=== PATIENT | male | born 1975 | race Caucasian/White ===

== ENCOUNTER 2021-10-22 15:11 | Emergency (ER) | payer BC, SELFPAY ==
[2021-10-22 15:30] VITALS: BP 156/99; PULSE 68; RESP 18; TEMP 37; O2SAT 96; BMI 32.8
[2021-10-22 15:53] VITALS: BP 156/99; PULSE 68; RESP 18; TEMP 37; O2SAT 96
--- NOTE | 2021-10-22 15:54 | HMH.EDUTC ---
[facility] [place] Clinical Impression: Fever blister Disposition: Home, Self-Care Condition on Discharge: Good Instructions: Cold Sores, DI for Cold Sores, Valacyclovir Additional Instructions: Take medication as instructed 2000mg every 12 hours for 1 days Sun exposure may sometimes trigger outbreaks of fever blisters. If you have recurring blisters, using sunscreen may help reduce their frequency. Fever blisters are contagious. Avoid kissing, sharing eating utensils, cups, water bottles, or other items if you are experiencing symptoms. Follow up with your Family Doctor if no improvement or any worsening of symptoms Return if needed Straight to ER if any life threatening symptoms Prescriptions: Valacyclovir HCl [Valacyclovir] 2,000 mg PO Q12H 1 Days #4 tab Transmission Status: Pending to [id number] Referrals: Isai Su [Primary Care Provider] - As needed Forms: Work/School Release Time of Disposition: 15:58 Medical Decision Making - Kwadwo Inquiry Pt receiving controlled substance: No Kwadwo was queried for this patient: No Vital Signs: 10/22/21 15:30 10/22/21 15:53 Temperature 98.6 F 98.6 F Temperature Source Oral Pulse Rate 68 Pulse Rate [Left Brachial] 68 Respiratory Rate 18 18 Blood Pressure 156/99 H Blood Pressure [Left Arm] 156/99 H Blood Pressure Mean [Left Arm] 118 Blood Pressure Source [Left Arm] Automatic Cuff Blood Pressure Position [Left Arm] Sitting 02 Sat by Pulse Oximetry 96 Oxygen Delivery Method Room Air [facility] [place] - General Stated complaint: canker sores on lips Time Seen by Provider: 10/22/21 15:45 Mode of Arrival: Ambulatory Source of Information: Patient Limitations: No Limitations Description of Symptoms (Recalled from Triage Doc. by RN): PATIENT C/O COLD SORES WITH SWELLING TO UPPER LIP X 2 DAYS HEENT Symptoms (Recalled from RN notes): Yes Resp Symptoms (Recalled from RN notes): No Skin Symptoms (Recalled from RN notes): No MS Symptoms (Recalled from RN notes): No Functional Status (Recalled from RN notes): WNL - History of Present Illness Provider Complaint: Patient states that he was under alot of stress last week and he noticed a couple days ago he had fever blisters starting on both sides of his upper lip States that he has been using Abreeva and since then they have spread accross his upper lip and he has had some swelling States that earlier his lip was swollen and puffy and has went down some not but still hurts - Related Data Previous Rx's Medication Instructions Recorded Valacyclovir HCl [Valacyclovir] 2,000 mg PO Q12H 1 Days #4 tab 10/22/21 Allergies Allergy/AdvReac Type Severity Reaction Status Date / Time Penicillins Allergy Verified 10/22/21 15:52 Sulfa (Sulfonamide Allergy Verified 10/22/21 15:52 Antibiotics) - Worker's Comp Is this a Worker's Comp case?: No [facility] History - Hepatitis A Screen Attestation statement:: This patient has been screened for Hepatitis A risk factors. I have reviewed the patient's past medical history: Yes Medical History: Reports:: Diabetes Mellitus Type 2 - Social History Alcohol Intake: never Occupational Status: other ROS Obtained: Yes All systems reviewed & no additional complaints, Yes Systems reviewed as appropriate & no additional complaints - Eyes Eyes: Reports system reviewed and no additional complaints, except as docu - ENT Ears, Nose, Mouth, and Throat: Reports system reviewed and no additional complaints, except as docu, Reports other (fever blisters and swelling on upper lip) Physical Exam - General General appearance: alert, in no apparent distress - Expanded ENT Exam Mouth exam: Present: other (fever blister like lesions noted on top lip in both corners of mouth with mild swelling) - Respiratory Respiratory exam: Present: normal lung sounds bilaterally. Absent: respiratory distress - Cardiovascular Cardiovascular exam: Present: regular rate, normal
== END 2021-10-22 16:03 | disposition home or self-care (01) ==
PROVIDERS: Emergency Provider Nurse Practitioner; PCP Family Medicine
DX: B00.1 Herpesviral vesicular dermatitis (principal)
CPT/HCPCS: 99212; G0463

== ENCOUNTER 2024-12-10 20:51 | Emergency (ER) | payer OTHER, SELFPAY ==
--- OUTSIDE RECORDS SUMMARY | 2024-10-26 10:45 | XMS_ITS | Encounter Summary ---
Author Organization [facility] Address [address] [place] [address] Care Team Providers Care Type Soldering Machine Tender Name Role Phone Isai Su MD Primary Care Provider [phone] Reason for Visit * Reason Comments F/u HTN Encounter Details Date Type Department Care Team (Late st Contact Info) Description 10/26/2024 10:45 AM EDT Office Visit [facility] [address] [place] [address] Isai Su MD [address] [place] [address] Essential hypertension (Primary Dx); Type 2 diabetes mellitus with hyperglycemia, without long-term current use of insulin; Hypogonadism in male; LLQ abdominal pain; History of kidney stones Social History Tobacco Use Types Packs/Day Years Used Date Smoking Tobacco: Never Smokeless Tobacco: Never Alcohol Use Standard Drinks/Week Comments Yes 0 (1 standard drink = 0.6 oz pur e alcohol) PHQ-2 Answer Date Recorded Retired PHQ-9: Brief Depression Severity Measure Score 0 06/15/2021 Abuse Screen Answer Date Recorded Feels Unsafe at Home or Work/School no 04/28/2022 Feels Threatened by Someone no 04/10 Does Anyone Try to Keep You From Having Contact with Others or Doing Things Outside Your Home? no 04/28/2022 Physical Signs of Abuse Present no 04/28/2022 PHQ-2 Answer Date Recorded Patient Health Questionnaire-2 Score 0 10/26/2024 Sex and Gender Information Value Date Recorded Sex Assigned at Male 12/03/2019 7:18 AM EDT Legal Sex Male 1:47 PM EDT Gender Identity Male 12/03/2019 7:18 AM EDT Sexual Orientation Straight 12/03/2019 7: 18 AM EDT documented as of this encounter Last Filed Vital Signs Vital Sign Reading Time Taken Comments Blood Pressure 156/88 10/26/2024 10:56 AM EDT Pulse 66 10/26/2024 10:56 AM EDT Temperature 36.7 C (98.1 F) 10/26/2024 10:56 AM EDT Respiratory Rate 18 10/26/2024 10:56 AM EDT Oxygen Saturation 96% 10/26/2024 10:56 AM EDT Inhaled Oxygen Concentration - - Weight 103 kg (227 lb) 10/26/2024 10:56 AM EDT Height 180.3 cm (5' 11 ) 10/26/2024 10:56 AM EDT Body Mass Index 31.66 10/26/2024 10:56 AM EDT documented in this encounter Functional Status documented as of this encounter Progress Notes * Isai Su MD - 10/26/2024 10:45 AM EDT Chief Complaint F/u HTN Subjective Tito Easley Flaquito Bullard presents to [facility] HPI 49-year-old male here for follow-up of hypertension and diabetes. Home BP readings: 153/84 on 10/07/2024, 148/84 on 10/10/2024, 134/80 on 10/13/2024. No dizziness orlightheadedness. Current medication: bisoprolol hydrochlorothiazide once daily. Lost 10 pounds due to dietary changes and reduced gym activity. No chest pain or shortness of breath. Has not started Jardiance or picked up the prescription. Consistent diet avoiding sweets and limiting sugar intake. Curious about methods to lower A1c besides medication. A1c was 8.1, previously around 9 a year ago. Family history of diabetes. Only taken testosterone twice since last visit. Experienced left lower quadrant pain last , now lessened. No medical attention sought. No constipation, blood in bowel movements, or difficulty urinating. Pain initially 10/10, now 1/10. No nausea or other side effects. Suspects diverticulitis. No fevers or chills. Never had diverticulitis.Pain described as burning and sharp, no nausea, continued eating normally. Experienced gas, initially thought pain was due to trapped gas. Pain made wearing work belt uncomfortable. Consumes about a teaspoon of lakisha seeds daily in oatmeal. No alcohol consumption. MRI of abdomen 2 years ago revealed2 kidney stones. Previous kidney stone attack on right side with irritation, frequent urination, followed by excruciating pain requiring ER visit. Current pain feels different. Past colonoscopy revealed mild diverticulosis of sigmoid colon. Symptoms consistent over past 5 years, except elevated testosterone levels. Interested in free testosterone level, reports lack of libido. Occupation: Works with [employer] and [employer] Diet: Avoids sweets, limits sugar intake, consumes lakisha seeds daily in oatmeal Alcohol: Does not consume alcohol Sexual Practices: Reports lack of libido PAST SURGICAL HISTORY: - Colonoscopy in 2022 - MRI of abdomen 2 years ago revealing 2 kidney stones FAMILY HISTORY - Mother has diabetes - Father has diabetes OTHER NOTES: Review of Systems Respiratory: Negative. Cardiovascular: Negative. Gastrointestinal: Positive for abdominal pain. All other systems reviewed and are negative. Objective Vital Signs: BP 156/88 Pulse 66 Temp 98.1 ??F (36.7 ??C) Resp 18 Ht 180.3 cm (71 ) Wt 103 kg (227 lb) SpO2 96% BMI 31.66 kg/m?? Physical Exam Vitals and nursing note reviewed. Constitutional: General: He is not in acute distress. Appearance: Normal appearance. He is not ill-appearing or toxic-appearing. HENT: Head: Normocephalic. Abdominal: Tenderness: There is abdominal tenderness (LLQ). There is no guarding or rebound. Neurological: Mental Status: He is alert. Psychiatric: Mood and Affect: Mood normal. Behavior: Behavior normal. Cardiovascular: Regular rate and rhythm, no murmurs, rubs, or gallops Gastrointestinal: Tenderness in left lower quadrant Result Review : Other Results Results - Labs: - A1c: 8.1% - Testosterone: >1500 ng/dL - Imaging: - Colonoscopy: Mild diverticulosis of sigmoid colon Assessment and Plan Diagnoses and all orders for this visit: 1. Essential hypertension (Primary) 2. Type 2 diabetes mellitus with hyperglycemia, without long-term current use of insulin 3. Hypogonadism in male 4. LLQ abdominal pain - metroNIDAZOLE (FLAGYL) 500 MG tablet; Take 1 tablet by mouth 2 (Two) Times a Day. Dispense: 14 tablet; Refill: 0 - ciprofloxacin (Cipro) 500 MG tablet; Take 1 tablet by mouth 2 (Two) Times a Day. Dispense: 14 tablet; Refill: 0 5. History of kidney stones DISCUSSION 1. Hypertension: BP readings: 153/84 on 10/07/2024, 148/84 on 10/10/2024, 134/80 on 10/13/2024. Continue bisoprolol hydrochlorothiazide once daily. 2. Diabetes mellitus: A1c 8.1. Discussed risks of high A1c: kidney failure, nerve damage, heart attack, strokes, vision loss. Start Jardiance as prescribed. Continue dietary modifications, consider weight loss. 3. Diverticulitis: Probable. Left lower quadrant pain improved but tender. Physical exam: tenderness in left lower quadrant. History of mild diverticulosis of sigmoid colon. Maintain high- fiber diet, avoid nuts/seeds. If pain worsens or does not improve, order CT scan. If severe pain, seek immediate ER attention for CT scan. Start antibiotics: Cipro 500 mg BID and Flagyl 500 mg BID for one week. Recommend no alcohol with useof the antibiotic. 4. Elevated testosterone: Testosterone >1500 ng/dL. Discussed other factors affecting libido. Check free testosterone nextvisit. Continue the once a week instead of twice a week. Follow-up: Scheduled for early 01/2025. Kwadwo dated 10/26/2024 was reviewed and appropriate. Follow Up Return in about 2 months (around 01/10/2025). Patient was given instructions and counseling regarding his condition or for health maintenance advice. Please see specific information pulled into the AVS if appropriate. Isai Su MD Patient or patient contact representative verbalized consent for the use of Ambient Listening during the visit with Isai Su MD for chart documentation. 10/26/2024 18:20 EDT documented in this encounter Plan of Treatment Upcoming Encounters Date Type Department Care Team (Late st Contact Info) Description 01/18/2025 11:30 AM EST Office Visit [facility] [address] [place] [address] Isai Su MD [address] [place] [address] documented as of this encounter Visit Diagnoses Diagnosis Essential hypertension- Primary Unspecified essential hypertension Type 2 diabetes mellitus with hyperglycemia, without long-term current use of insulin Hypogonadism in male LLQ abdominal pain Abdominal pain, left lower quadrant History of kidney stones documented in this encounter Care Teams Type Soldering Machine Tender Relationship Specialty Start Date End Date Isai Su MD [address] [place] [address] PCP - General 10/20/14 documented as of this encounter
--- OUTSIDE RECORDS SUMMARY | 2024-12-10 21:51 | XMS_ITS | Encounter Summary ---
Author Organization [facility] Address [address] [place] [address] Care Team Providers Care Asphalt Machine Operator Name Role Phone Isai Su MD Primary Care Provider [phone] Encounter Details Date Type Department Care Team (Latest Contact Info) Description 10/26/2024 Travel Social History Tobacco Use Types Packs/Day Years [...] AM EDT documented as of this encounter Functional Status documented as of this encounter Plan of Treatment Upcoming Encounters Date Type Department Care Team (Late st Contact Info) Description 01/18/2025 11:30 AM EST Office Visit [facility] [address] [place] [id number] Isai Su MD [address] [place] [address] documented as of this encounter Visit Diagnoses Not on filedocumented in this encounter Care Teams Asphalt Machine Operator Relationship Specialty Start Date End Date Isai Su MD [address] [place] [address] PCP - General 10/20/14 documented as of this encounter
--- OUTSIDE RECORDS SUMMARY | 2024-12-10 21:51 | XMS_ITS | Encounter Summary ---
Author Organization [facility] Address [address] [place] [address] Care Team Providers Care Senior Windows Engineer Name Role Phone Isai Su MD Primary Care Provider [phone] Encounter Details Date Type Department Care Team (Late Contact Info) Description 05/18/2019 Telephone [facility] [address] [place] [address] Isai Su MD [address] [place] [address] Social History Tobacco Use Types Packs/Day Years Used Date Smoking Tobacco: Never Smokeless Tobacco: Never Alcohol Use Standard Drinks/Week Comments Yes 0 (1 standard drink = 0.6 oz pur e alcohol) Sex and Gender Information Value Date Recorded Sex Assigned at Male 12/03/2019 7:18 AM EDT Legal Sex Male 1:47 PM EDT Gender Identity Male 12/03/2019 7:18 AM EDT Sexual Orientation Straight 12/03/2019 7: 18 AM EDT documented as of this encounter Plan of Treatment Upcoming Encounters Date Type Department Care Team (Late Contact Info) Description 01/18/2025 11:30 AM EST Office Visit [facility] [address] [place] [address] Isai Su MD [address] [place] [address] documented as of this encounter Visit Diagnoses Not on filedocumented in this encounter Care Teams Senior Windows Engineer Relationship Specialty Start Date End Date Isai Su MD [address] [place] [address] PCP - General 10/20/14 documented as of this encounter
--- OUTSIDE RECORDS SUMMARY | 2024-12-10 21:51 | XMS_ITS | Data Portability ---
Author Organization [facility] Address [address] [place] [address] Care Team Providers Care Motorman/Woman Name Role Phone JENY ANDREWLAS Primary Care Provider [phone] TOPHER GUERRIER Dean Of Student Services Unavailable Assessment No assessment recorded. Plan of Treatment Reminders Order Date Submit Date Provider Last Modified By Organization Details Last Modified Time Details Appointments None recorded. Lab None recorded. Referral None recorded. Procedures None recorded. Surgeries None recorded. Imaging electrocard iogram 2023 024 [facility], [facility], [place], [address], 09:00:13 Medication Orders None recorded. Patient TargetsNo targets recorded. Patient InstructionsNo instructions recorded. Reason for Referral None Reported. Results Created Date Observation Date Name Description Value Unit Range Abnormal Flag Note LastModifiedBy Organization Detail LastModifiedTime 01/13/2001/16/2024 elect rocar diogr am No observ ation record ed. [place] [address], [place], [address], 01/16/2024 09:00:31 01/16/2001/13/2024 elect rocar diogr am No observ ation record ed. [place] [address], [place], [address], 01/16/2024 09:00:14 Result Notes None recorded. Medical Equipment None Reported. Allergies Allergen ID Allergen Name Allergen Category Reaction Reaction Severity Criticality Documentation Date Start Date Code Code System Note Provider Name and Address Organization Details Recorded Time [id number] Product containin g penicilli n (product) medicatio n Not available Not available Not available 01/13/2024 [id number] [facility] Kathe marin [facility] [place] 4 14:22:17 [id number] Substance with sulfonami de structure and antibacte rial mechanism of action (substanc e) medicatio n Not available Not available Not available 01/13/2024 [id number] Kathe marin [facility] [place] 4 14:22:21 Medications Name Sig Start Date Stop Date Status Note LastModified by Organization Details LastModified Time pentoxifyll ine ER 400 mg tablet,exte nded release TAKE 1 TABLET BY MOUTH TWICE DAILY 01/12 completed Not Available Not Available Not Available testosteron e cypionate 200 mg/mL intramuscul ar oil INJECT 1.5 ML INTO THE MUSCLE DIRECTED EVERY 10 DAYS active Not Available Not Available No t Available Vitals Date Recorded Body weight Body mass index (BMI) Body height Oxygen saturation Oxygen saturation in Arterial blood by Pulse oximetry Heart rate Systolic And Diastolic Provider Name and Address Organization Details Last Updated DateTime 4 884748. 25 g 33 kg/m2 177.8 cm 98 % 98 % 74 /min 162/110 mm[Hg] Kathe LEONARD [facility] & [place] 4 14:24:41 Social History Question Answer Notes LastModified by [employer] Details LastModified Time Tobacco Smoking Status Never Smoker HORACIO Coppola [facility] [place] 01/13/2024 14:22:50 What Is Your Level Of Caffeine Consumption? Moderate [email or web address] Information not available 01/13/2024 Sex: Unknown Functional Status Question Answer Note LastModified by [employer] Details LastModified Time Do you use any illicit or recreational drugs? No [email or web address] Information not available 01/13/2024 What is your level of alcohol consumption? None [email or web address] Information not available 01/13/2024 Mental Status None recorded. Family History Nothing Reported. Medical History No medical history recorded. Past Encounters Encounter ID Performer Location Encounter Start Date Encounter Closed Date Diagnosis/Indication Diagnosis SNOMED-CT Code Diagnosis ICD10 Code Diagnosis IMO Codes Diagnosis Note [id number] Asif Farnsworth MD [facility] [address] [place] [address] 01/13/2024 14:08:40 01/13/2024 14:42:19 History and physical examination, pre-employment 082776638 Z02.1 EKG with no evidence of LVH today. He had a stress echocardio gram as noted with normal LV function. He is active with no exertional chest pain shortness of breath.No further cardiac testing warranted at this point. Health Concerns Section Related Observation LastModified by Organization Detai ls LastModified Time None Recorded Concern Status LastModified by Organization Details LastModified Time None Recorded Advance Directives Directive None Recorded Payers Insurance Date Sequence Insurance Name Policy Number Policy Azevedo Covered Member ID Azevedo Member ID Guarantor Name 01/13/2024 FRANKI [facility] [id number] Grady Walroth 01/13/2024 1 BC[employer]-[place]: TOD FONTENOT [facility] [id number] [address] Walroth [id number] Notes Date Note Type Note Provider Name and Address Organization Details Recorded Time 01/13/2024 text/html 49 m here for evaluation. He had pre employment physical at [facility], EKG there showed concerns of LVH and hence referred to me for further evaluation. The patient was followed at [facility]. 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 Expected exercise duration 11:00; actual 9:28Left ventricular systolic function is normal. Estimated left ventricular EF = 55%The cardiac valves are anatomically and functionally normal.No ECG evidence of myocardial ischemia. Negative clinical evidence of myocardial ischemia. EKG 01/13/2024 NSR 75, normal axis normal intervals Asif Farnsworth MD [address], [place], [address], [place] - [facility] - [place] & [place] 01/13/2024 15:28:16
--- OUTSIDE RECORDS SUMMARY | 2024-12-10 21:51 | XMS_ITS | Clinical Summary ---
[facility] Address [address] [place] [address] Care Team Providers Care Social Media Campaign Manager Name Role Phone Isai Su MD Primary Care Provider [phone] Allergies Active Allergy Reactions Criticality Noted Date Comments Metformin Other (See Comments) Low 10/08/2024 Side effects Penicillins Rash Low 06/05/2015 Sulfa Antibiotics Rash Low 06/05/2015 Medications Testosterone Cypionate (DEPOTESTOTERONE CYPIONATE) 200 MG/ML injectionIndicati ons:Hypogonadism male INJECT 1.5 ML INTO THE MUSCLE DIRECTED EVERY 10 DAYS 6 mL 1 4 Active bisoprolol-hydroc hlorothiazide (Ziac) 5-6.25 MG per tabletIndications :Essential hypertension Take 1 tablet by mouth Daily. 30 tablet 2 5 Active empagliflozin (Jardiance) 10 MG tablet tabletIndications :Type 2 diabetes mellitus with hyperglycemia, without long-term current use of insulin Take 1 tablet by mouth Daily. 30 tablet 2 5 Active metroNIDAZOLE (FLAGYL) 500 MG tabletIndications :LLQ abdominal pain Take 1 tablet by mouth 2 (Two) Times a Day. 14 tablet 5 Active ciprofloxacin (Cipro) 500 MG tabletIndications :LLQ abdominal pain Take 1 tablet by mouth 2 (Two) Times a Day. 14 tablet 5 Active Hospital, Clinic, or Other Facility Administered Medication Ordered Dose Route Frequency Start Date End Date Status Testosterone Cypionate (DEPOTESTOTERONE CYPIONATE) injection 300 mgIndications:Hypogon adism male 300 mg IM Once every 10 days 02/02/2018 Active Active Problems Problem Noted Date Diagnosed Date Syncope and collapse 06/17/2022 Overview (07/16/2022): Nuclear stress test (06/01/2021): No evidence of ischemia. LVEF 59%. NSTEMI at [facility] May 2021 Echo (05/14/2021): LVEF > 55%. No significant valvular abnormalities. Stress echo (04/16/2022): No evidence of ischemia. No significant valvular abnormalities. LVEF 55%. 8 day monitor (04/30/2022): Average HR 79. PVC <0.01% burden. 3 occurences of SVT, longest episode 3 beats, fastest 178. Mixed hyperlipidemia 08/09/2021 Irritability and anger 08/09/2021 Erythrocytosis 11/18/2019 Chronic gout of multiple sites 04/19/2019 Type 2 diabetes mellitus wit h hyperglycemia, without long-term current use of insulin 07/17/2017 Assessment & Plan (07/17/2018 5:51 PM EDT): Due for labs. Check CMP and lipid panel and A1c. Continue diet changes and efforts with weight loss. Further plan once labs reviewed. He is currently off all diabetes medication. Essential hypertension 01/09/2016 Assessment & Plan (07/17/2018 5:52 PM EDT): Blood pressure is elevated but he has not taken his medication in 4 to 5 days. Recommend that he take his medication regularly and to go home and take the medication right now. Continue to monitor blood pressure and call if not improving. Erectile disorder, acquired, generalized, modera te 01/09/2016 Idiopathic chronic gout of right foot 01/09/2016 Assessment & Plan (07/17/2018 5:51 PM EDT): Recheck uric acid level. Consider lowering dose of Uloric given possible risk of increased heart disease with Uloric. Hypogonadism male 01/09/2016 Assessment & Plan (07/17/2018 5:51 PM EDT): Check CBC, CMP and testosterone level. Testosterone injection today. Further plan once labs reviewed. He does feel better once he has the injections. Resolved Problems Problem Noted Date Diagnosed Date Resolved Date Hyperglycemia 01/09/2016 07/17/2018 Encounters Date Type Department Care Team Description 10/26/2024 10:45 AM EDT Office Visit [facility] [address] [place] [address] Isai Su MD Essential hypertension (Primary Dx); Type 2 diabetes mellitus with hyperglycemia, without long-term current use of insulin; Hypogonadism in male; LLQ abdominal pain; History of kidney stones 10/26/2024 Travel 10/14/2024 Telephone [facility] [address] [place] [address] Isai Su MD Jardiance PA 10/05/2024 9:45 AM EDT Office Visit [facility] [address] [place] [address] Isai Su MD Essential hypertension (Primary Dx); Polycythemia; Hypogonadism male; Type 2 diabetes mellitus with hyperglycemia, without long-term current use of insulin; Mixed hyperlipidemia; Prostate cancer screening; Other insomnia 10/05/2024 Results Follow-Up [facility] [address] [place] [address] sIai Su MD 10/05/2024 Travel 10/04/2024 Telephone [facility] [address] [place] [address] Isai Su MD Advice Only from Last 3 Months Family History Medical History Relation Name Comments Hypertension Father Diabetes Mother Relation Name Status Comments Father Mother Social History Tobacco Use Types Packs/Day Years Used Date Smoking Tobacco: Never Smokeless Tobacco: Never Tobacco Cessation:Counseling Given: Not Answered Alcohol Use Standard Drinks/Week Comments Yes 0 [...] Orientation Straight 12/03/2019 7: 18 AM EDT Last Filed Vital Signs Vital Sign Reading [...] Mass Index 31.66 10/26/2024 10:56 AM EDT Plan of Treatment Upcoming Encounters Date Type Department Care Team (Late st Contact Info) Description 01/18/2025 11:30 AM EST Office Visit [facility] [address] [place] [address] Isai Su MD [address] [place] [address] Health Maintenance Due Date Last Done Comments DIABETIC EYE EXAM 01/03/1986 DIABETIC FOOT EXAM 01/03/1986 Hepatitis B (1 of 3 - 19+ 3- dose series) 01/03/1995 Pneumococcal Vaccine 0-49 (1 of 2 - PCV) 01/03/1995 TDAP/TD VACCINES (1 - Tdap) 01/03/1995 ANNUAL PHYSICAL 07/04/2015 COLOGUARD 01/03/2021 COLON CANCER SCREENING 5 YEA R SIGMOIDOSCOPY 01/03/2021 CT COLONOGRAPHY 01/03/2021 FIT Testing (1 year) 01/03/2021 FECAL OCCULT BLOOD TEST 04/28/2023 04/28/2022 INFLUENZA VACCINE 10/08/2024 HEMOGLOBIN A1C 04/07/2025 10/05/2024, 06/0 06/2023, 06/27/2022, Additional history exists LIPID PANEL 10/05/2025 10/05/2024, 06/0 06/2023, 06/27/2022, Additional history exists URINE MICROALBUMIN-CREATININ E RATIO (uACR) 10/05/2025 10/05/2024 COLONOSCOPY 05/15/2027 05/14/2022, 10/10/2016 COLORECTAL CANCER SCREENING 05/15/2027 HEPATITIS C SCREENING Completed 07/03/2015 Procedures Procedure Name Priority Date/Time Associated Diagnosis Comments POC ALBUMIN/CREATININE RATIO Routine 10/05/2024 10:46 AM EDT Type 2 diabetes mellitus with hyperglycemia, without long-term current use of insulin CBC AND DIFFERENTIAL Routine 10/05/2024 10:27 AM EDT Polycythemia Hypogonadism male PSA SCREEN Routine 10/05/2024 10:27 AM EDT Prostate cancer screening TESTOSTERONE Routine 10/05/2024 10:27 AM EDT Hypogonadism male HEMOGLOBIN A1C Routine 10/05/2024 10:27 AM EDT Type 2 diabetes mellitus with hyperglycemia, without long-term current use of insulin LIPID PANEL W/ CHOL/HDL RATIO Routine 10/05/2024 10:27 AM EDT Essential hypertension Mixed hyperlipidemia COMPREHENSIVE METABOLIC PANEL Routine 10/05/2024 10:27 AM EDT Essential hypertension Hypogonadism male Mixed hyperlipidemia SCANNED - COLONOSCOPY 05/14/2022 POCT OCCULT BLOOD STOOL STAT 04/28/2022 12:43 AM EST HEPATITIS PANEL, ACUTE Routine 07/03/2015 8:43 AM EDT from Last 3 Months or Most Recently Relevant to Health Maintenance Results * (ABNORMAL) POC Albumin/Creatinine Ratio Urine (10/05/2024 10:46 AM EDT) Pathologist [facility] POC ALBUMIN, URINE 150 mg/L Comment:High abnormal POC CREATININE, URINE 100 mg/dL POC Urine Albumin Creatinine Ratio >300 <30 mg/g Lot Number [id number] Expiration Date 06/07/2025 Urine 10/05/2024 10:4 6 AM EDT us Isai Su MD POINT OF CARE TEST ORDERABLES F inal Result * PSA Screen (10/05/2024 10:27 AM EDT) [facility] PSA 1.010 0.000 - 4.000 ng/mL [facility] Comment: Testing Method: [employer] Electrochemiluminescence Immunoassay(ECLIA) Values obtained with different assay methods or kits cannot be used interchangeably. Blood 10/05/2024 10:2 7 AM EDT 10/05/2024 Narrative [facility] ([facility]) - 10/06/2024 8:11 AM EDT Performed at: [address] [place] [address] [id number] Shoulder Joiner: Sarkis Clayton MD, Phone: [phone] Patient Fasting: Y us Isai Su MD LAB BLOOD ORDERABLES Final Resu lt [facility] (AMBULATORY) [address] [place] [address], [place] [phone] [facility] [address] [place] [address], [place] [phone] * (ABNORMAL) Lipid Panel With / Chol / HDL Ratio (10/05/2024 10:27 AM EDT) [facility] Total Cholesterol 159 0 - 200 mg/dL [facility] Comment: Cholesterol Reference Ranges (U.S. Department of Health and Human Services ATP III Classifications) Desirable <200 mg/dL Borderline High 200-239 mg/dL High Risk >240 mg/dL Triglyceride Reference Ranges (U.S. Department of Health and Human Services ATP III Classifications) Normal <150 mg/dL Borderline High 150-199 mg/dL High 200-499 mg/dL Very High >500 mg/dL HDL Reference Ranges (U.S. Department of Health and Human Services ATP III Classifications) Low <40 mg/dl (major risk factor for CHD) High >60 mg/dl ('negative' risk factor for CHD) LDL Reference Ranges (U.S. Department of Health and Human Services ATP III Classifications) Optimal <100 mg/dL Near Optimal 100-129 mg/dL Borderline High 130-159 mg/dL High 160-189 mg/dL Very High >189 mg/dL LDL is calculated using the NIH LDL-C calculation. Triglycerides 117 0 - 150 mg/dL [facility] HDL Cholesterol 28(L) 40 - 60 mg/dL [facility] VLDL Cholesterol Dawit 22 5 - 40 mg/dL [facility] LDL Chol Calc (NIH) 109(H) 0 - 100 mg/dL [facility] Chol/HDL Ratio 5.68 [facility] Blood 10/05/2024 10:2 7 AM EDT 10/05/2024 Narrative [facility] ([facility]) - 10/06/2024 8:11 AM EDT Performed at: [address] [place] [address] [id number] Shoulder Joiner: Sarkis Clayton MD, Phone: [phone] Patient Fasting: Y us Isai Su MD LAB BLOOD ORDERABLES Final Resu lt [facility] [place] ([facility]) [address] [place] [address], [facility] [address] [place] [address], * (ABNORMAL) CBC & Differential (10/05/2024 10:27 AM EDT) [facility] WBC 9.22 3.40 - 10.80 10*3/mm3 [facility] RBC 5.93(H) 4.14 - 5.80 10*6/mm3 [facility] Hemoglobin 19.0(H) 13.0 - 17.7 g/dL [facility] Hematocrit 55.3(H) 37.5 - 51.0 % [facility] MCV 93.3 79.0 - 97.0 fL [facility] MCH 32.0 26.6 - 33.0 pg [facility] MCHC 34.4 31.5 - 35.7 g/dL [facility] RDW 12.4 12.3 - 15.4 % [facility] Platelets 345 140 - 450 10*3/mm3 [facility] Neutrophil Rel % 63.8 42.7 - 76.0 % [facility] Lymphocyte Rel % 20.4 19.6 - 45.3 % [facility] Monocyte Rel % 10.0 5.0 - 12.0 % [facility] Eosinophil Rel % 3.9 0.3 - 6.2 % [facility] Basophil Rel % 0.9 0.0 - 1.5 % [facility] Neutrophils Absolute 5.89 1.70 - 7.00 10*3/mm3 [facility] Lymphocytes Absolute 1.88 0.70 - 3.10 10*3/mm3 [facility] Monocytes Absolute 0.92(H) 0.10 - 0.90 10*3/mm3 [facility] Eosinophils Absolute 0.36 0.00 - 0.40 10*3/mm3 [facility] Basophils Absolute 0.08 0.00 - 0.20 10*3/mm3 [facility] Immature Granulocyte Rel % 1.0(H) 0.0 - 0.5 % [facility] Immature Grans Absolute 0.09(H) 0.00 - 0.05 10*3/mm3 [facility] nRBC 0.0 0.0 - 0.2 /100 WBC [facility] Blood 10/05/2024 10:2 7 AM EDT 10/05/2024 Narrative [facility] ([facility]) - 10/06/2024 8:11 AM EDT Performed at: [address] [place] [address] [id number] Shoulder Joiner: Sarkis Clayton MD, Phone: [phone] Patient Fasting: Y Isai Su MD LAB BLOOD ORDERABLES Final Resu lt Performing Organization Address City/[facility]/ZIP Co de Phone Number [facility] (AMBULATORY) [address] [place] [address], [facility] [address] [place] [address], * (ABNORMAL) Testosterone (10/05/2024 10:27 AM EDT) Testosterone, Total >1500(H) 264 - 916 ng/dL [facility] Comment: Adult male reference interval is based on a population of healthy nonobese males (BMI <30) between 19 and 39 years old. mone Ferrell.al. JCEM 2017,102;[id number]. PMID: [id number]. Blood 10/05/2024 10:2 7 AM EDT 10/05/[address] [facility] (AMBULATORY) - 10/06/2024 8:11 AM EDT Performed at: [address] - [facility] [id number] Shoulder Joiner: Zach Orona PhD, Phone: [phone] Patient Fasting: Y Isai Su MD LAB BLOOD ORDERABLES Final Resu lt Performing Organization Address City/[facility] Co de Phone Number [facility] [address] [place] [address], [facility] [address] [place] [id number], * (ABNORMAL) Hemoglobin A1c (10/05/2024 10:27 AM EDT) Hemoglobin A1C 8.10(H) 4.80 - 5.60 % [facility] Comment: Hemoglobin A1C Ranges: Increased Risk for Diabetes 5.7% to 6.4% Diabetes >= 6.5% Diabetic Goal < 7.0% Blood 10/05/2024 10:2 7 AM EDT 10/05/2024 Narrative [facility] ([facility]) - 10/06/2024 8:11 AM EDT Performed at: [address] [place] [address] [id number] Shoulder Joiner: Sarkis Clayton MD, Phone: [phone] Patient Fasting: Y us Isai Su MD LAB BLOOD ORDERABLES Final Resu lt [facility] ([facility]) [address] [place] [address], [facility] [address] [place] [address], * (ABNORMAL) Comprehensive Metabolic Panel (10/05/2024 10:27 AM EDT) Pathologist [facility] Glucose 136(H) 65 - 99 mg/dL [facility] BUN 14.0 6.0 - 20.0 mg/dL [facility] Creatinine 1.24 0.76 - 1.27 mg/dL [facility] EGFR Result 71.7 >60.0 mL/min/1.7 3 [facility] Comment: GFR Categories in Chronic Kidney Disease (CKD) GFR Category GFR (mL/min/1.73) Interpretation G1 90 or greater Normal or high (1) G2 60-89 Mild decrease (1) G3a 45-59 Mild to moderate decrease G3b 30-44 Moderate to severe decrease G4 15-29 Severe decrease G5 14 or less Kidney failure (1)In the absence of evidence of kidney disease, neither GFR category G1 or G2 fulfill the criteria for CKD. eGFR calculation 2020 CKD-EPI creatinine equation, which does not include race as a factor BUN/Creatinine Ratio 11.3 7.0 - 25.0 [facility] Sodium 137 136 - 145 mmol/L [facility] Potassium 4.3 3.5 - 5.2 mmol/L [facility] Chloride 96(L) 98 - 107 mmol/L [facility] Total CO2 25.2 22.0 - 29.0 mmol/L [facility] Calcium 9.1 8.6 - 10.5 mg/dL [facility] Total Protein 7.3 6.0 - 8.5 g/dL [facility] Albumin 4.2 3.5 - 5.2 g/dL [facility] Globulin 3.1 gm/dL [facility] A/G Ratio 1.4 g/dL [facility] Total Bilirubin 1.2 0.0 - 1.2 mg/dL [facility] Alkaline Phosphatase 92 39 - 117 U/L [facility] AST (SGOT) 27 1 - 40 U/L [facility] ALT (SGPT) 37 1 - 41 U/L [facility] Blood 10/05/2024 10:2 7 AM EDT 10/05/2024 Narrative [facility] ([facility]) - 10/06/2024 8:11 AM EDT Performed at: [address] [place] [address] [id number] Shoulder Joiner: Sarkis Clayton MD, Phone: [phone] Patient Fasting: Y Isai Su MD LAB BLOOD ORDERABLES Final Resu lt [facility] ([facility]) [address] [place] [address], [facility] [address] [place] [address], [place] [phone] * SCANNED - COLONOSCOPY (05/14/2022) Tre Silva MD CHART REVIEW TABS Final Result * (ABNORMAL) POC Occult Blood Stool (04/28/2022 12:43 AM EST) Fecal Occult Blood Positive(A) Negative [facility] Lot Number [id number] [facility] Expiration Date 01/01 [facility] DEVELOPER LOT NUMBER [id number] [facility] DEVELOPER EXPIRATION DATE 08/02 [facility] Positive Control Positive Positive [facility] Negative Control Negative Negative [facility] Stool Specimen from rectum / Unknown 04/28/2022 12:43 AM EST Chito VIVEROS POINT OF CARE TEST ORDERABLES F inal Result [facility]
[address] [place] [id number], * Hepatitis panel, acute (07/03/2015 8:43 AM EDT) Hep A IgM Negative Negative [facility] ([facility]) Hepatitis B Surface Ag Negative Negative [facility] ([facility]) Hep B Core IgM Negative Negative [facility] ([facility]) Hep C Virus Ab <0.1 0.0 - 0.9 s/co ratio [facility] ([facility]) Comment: Negative: < 0.8 Indeterminate: 0.8 - 0.9 Positive: > 0.9 . The CDC recommends that a positive HCV antibody result be followed up with a HCV Nucleic Acid Amplification test ([id number]). 07/03/2015 8:43 AM EDT 07/03/2015 3:43 PM EDT Isai Su MD LAB BLOOD ORDERABLES Edited Res ult - Final [facility]
[address] [place] [address], from Last 3 Months or Most Recently Relevant to Health Maintenance Insurance PPO Care Teams Social Media Campaign Manager Relationship Specialty Start Date End Date Isai Su MD [address] [place] [address] PCP - General 10/20/14
--- OUTSIDE RECORDS SUMMARY | 2024-12-10 21:51 | XMS_ITS | Encounter Summary ---
[facility] Address [address] [place] [address] Care Team Providers Care Cabana Attendant Name Role Phone Isai Su MD Primary Care Provider [phone] Reason for Visit * Reason Onset Date Comments Jonah VIVEROS 10/14/2024 Encounter Details Date Type Department Care Team (Late st Contact Info) Description 10/14/2024 Telephone [facility] [address] [place] [address] Isai Su MD [address] [place] [address] Jonah VIVEROS Social History Tobacco Use Types Packs/Day Years [...] Present no 04/28/2022 PHQ-2 Answer Date Recorded Retired PHQ-9: Brief Depression Severity Measure Score 0 08/12/2023 Sex and Gender Information Value Date Recorded Sex Assigned at Male 12/03/2019 7:18 AM EDT Legal Sex Male 1:47 PM EDT Gender Identity Male 12/03/2019 7:18 AM EDT Sexual Orientation Straight 12/03/2019 7: 18 AM EDT documented as of this encounter Miscellaneous Notes * Telephone Encounter - Tiffanie Aly - 10/14/2024 12:03 PM EDT Hassan: [id number] Your request has been approved CaseId:[id number];Status:Approved;Review Type:Prior Auth;Coverage Start Date:09/14/2024;Coverage EndDate:10/14/2025; documented in this encounter Plan of Treatment Upcoming Encounters Date Type Department Care Team (Late st Contact Info) Description 01/18/2025 11:30 AM EST Office Visit [facility] [address] [place] [address] Isai Su MD [address] [place] [address] documented as of this encounter Visit Diagnoses Not on filedocumented in this encounter Care Teams Cabana Attendant Relationship Specialty Start Date End Date Isai Su MD [address] [place] [address] PCP - General 10/20/14 documented as of this encounter
--- OUTSIDE RECORDS SUMMARY | 2024-12-10 21:51 | XMS_ITS | Encounter Summary ---
[facility] Address [address] [place] [address] Care Team Providers Care Installation Superintendent Name Role Phone Isai Su MD Primary Care Provider [phone] Encounter Details Date Type Department Care Team (Late Contact Info) Description 06/28/2021 Telephone [facility] [address] [place] [address] Isai Su MD [address] [facility] [place] [address] Social History Tobacco Use Types Packs/Day Years Used Date Smoking Tobacco: Never Smokeless Tobacco: Never Alcohol Use Standard Drinks/Week Comments Yes 0 (1 standard drink = 0.6 oz pur e alcohol) PHQ-2 Answer Date Recorded Retired PHQ-9: Brief Depression Severity Measure Score 0 06/15/2021 Sex and Gender Information Value Date Recorded Sex Assigned at Male 12/03/2019 7:18 AM EDT Legal Sex Male 1:47 PM EDT Gender Identity Male 12/03/2019 7:18 AM EDT Sexual Orientation Straight 12/03/2019 7: 18 AM EDT documented as of this encounter Plan of Treatment Upcoming Encounters Date Type Department Care Team (Late Contact Info) Description 01/18/2025 11:30 AM EST Office Visit [facility] [address] [place] [address] Isai Su MD [address] [facility] [place] [place] [address] documented as of this encounter Visit Diagnoses Not on filedocumented in this encounter Care Teams Installation Superintendent Relationship Specialty Start Date End Date Isai Su MD [address] [place] [address] PCP - General 10/20/14 documented as of this encounter
[2024-12-10 21:52] VITALS: BP 141/79; PULSE 76; RESP 20; TEMP 36.7; O2SAT 96; BMI 32.7
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
--- NOTE | 2024-12-10 21:58 | XR_ITS ---
PROCEDURE INFORMATION: Exam: XR Left Foot Exam date and time: 12/10/2024 10:40 PM Age: 49 years old Clinical indication: Pain; Heel; Left; Additional info: Left heel pain TECHNIQUE: Imaging protocol: Radiologic exam of the left foot. Views: 1 or 2 views. COMPARISON: No relevant prior studies available. FINDINGS: Bones/joints: No acute fracture identified. No other significant bone or joint abnormality. Soft tissues: Normal. IMPRESSION: No acute findings.
[2024-12-10] MEDS: ACETAMINOPHEN 500MG TAB 1000 MG PO (22:03)
[2024-12-10] MEDS: IBUPROFEN 400 MG TABLET 800 MG PO (22:03)
[2024-12-10 23:25] VITALS: BP 141/79; PULSE 78; RESP 16; TEMP 36.9; O2SAT 97
== END 2024-12-10 23:24 | disposition home or self-care (01) ==
PROVIDERS: Emergency Provider Student in an Organized Health Care Education/Training Program; PCP Emergency Medicine
DX: S86.002A Unspecified injury of left Achilles tendon, initial encounter (principal); M79.672 Pain in left foot; X50.0XXA Overexertion from strenuous movement or load, initial encounter
CPT/HCPCS: 73620; 99283

== ENCOUNTER 2024-12-17 10:20 | Outpatient (CLI) | payer OTHER, SELFPAY ==
--- OUTSIDE RECORDS SUMMARY | 2024-10-26 10:45 | XMS_ITS | Encounter Summary ---
Author Organization [facility] Address [address] [place] [address] Care Team Providers Care Chemicals Fermentation Operator Name Role Phone Isai Su MD Primary Care Provider Reason for Visit * Reason Comments F/u HTN Encounter Details Date Type Department Care Team (Late st Contact Info) Description 10/26/2024 10:45 AM EDT Office Visit [facility] [address] [place] [address] Isai Su MD [address] [place] [address] Essential hypertension (Primary Dx); Type [...] Subjective Tito Easley Flaquito Bullard presents to [facility] HPI 49-year-old male here for [...] reports lack of libido. Occupation: Works with [employer] and [employer] Diet: Avoids sweets, limits sugar intake, consumes [...] appropriate. Isai Su MD Patient or patient sales representative cash registers verbalized consent for the use of Ambient Listening during the visit with Isai Su MD for chart documentation. 10/26/2024 18:20 EDT documented in this encounter Plan of Treatment Upcoming Encounters Date Type Department Care Team (Late st Contact Info) Description 01/18/2025 11:30 AM EST Office Visit [facility] [address] [place] [address] Isai Su MD [address] [place] [address] documented as of this encounter Visit Diagnoses Diagnosis Essential hypertension- Primary Unspecified essential hypertension Type 2 diabetes mellitus with hyperglycemia, without long-term current use of insulin Hypogonadism in male LLQ abdominal pain Abdominal pain, left lower quadrant History of kidney stones documented in this encounter Care Teams Chemicals Fermentation Operator Relationship Specialty Start Date End Date Isai Su MD [address] [place] [address] PCP - General 10/20/14 documented as of this encounter
--- OUTSIDE RECORDS SUMMARY | 2024-12-17 10:24 | XMS_ITS | Encounter Summary ---
[facility] Address [address] [place] [address] Care Team Providers Care Ethernet Network Architect Name Role Phone Isai Su MD Primary Care Provider [phone] Encounter Details Date Type Department Care Team (Late Contact Info) Description 06/28/2021 Telephone [facility] [address] [place] [address] Isai Su MD [address] [facility] [place] [address] Social History Tobacco Use Types [...] Description 01/18/2025 11:30 AM EST Office Visit [facility] [address] [place] [address] Isai Su MD [address] [facility] [place] [address] documented as of this encounter Visit Diagnoses Not on filedocumented in this encounter Care Teams Ethernet Network Architect Relationship Specialty Start Date End Date Isai Su MD [address] [place] [address] PCP - General 10/20/14 documented as of this encounter
--- OUTSIDE RECORDS SUMMARY | 2024-12-17 10:24 | XMS_ITS | Encounter Summary ---
[facility] [address] [place] [address] Care Team Providers Care Auto Damage Trainee Name Role Phone Isai Su MD Primary Care Provider [phone] Encounter Details Date Type Department Care Team (Late Contact Info) Description 05/18/2019 Telephone [facility] [address] [place] [address] Isai Su MD [address] [place] [address] Social History Tobacco Use Types Packs/Day [...] Description 01/18/2025 11:30 AM EST Office Visit [facility] [address] [place] [address] Isai Su MD [address] [place] [address] documented as of this encounter Visit Diagnoses Not on filedocumented in this encounter Care Teams Auto Damage Trainee Relationship Specialty Start Date End Date Isai Su MD [address] [place] [address] PCP - General 10/20/14 documented as of this encounter
--- OUTSIDE RECORDS SUMMARY | 2024-12-17 10:25 | XMS_ITS | Encounter Summary ---
[facility] [address] [place] [address] Care Team Providers Care Internet E Commerce Specialist Name Role Phone Isai Su MD Primary Care Provider [phone] Encounter Details Date Type Department Care Team [...] 11:30 AM EST Office Visit [facility] [address] [place] [phone] Isai Su MD [address] [place] [address] documented as of this encounter Visit Diagnoses Not on filedocumented in this encounter Care Teams Internet E Commerce Specialist Relationship Specialty Start Date End Date Isai Su MD [address] [place] [address] PCP - General 10/20/14 documented as of this encounter
--- OUTSIDE RECORDS SUMMARY | 2024-12-17 10:25 | XMS_ITS | Clinical Summary ---
[facility] [address] [place] [address] Care Team Providers Care Brickmason Contractor Name Role Phone Isai Su MD Primary Care Provider [phone] Allergies Active Allergy Reactions Criticality Noted Date [...] evidence of ischemia. LVEF 59%. NSTEMI at [facility] May 2021 Echo (05/14/2021): LVEF > [...] Description 10/26/2024 10:45 AM EDT Office Visit [facility] [address] [place] [address] Isai Su MD Essential hypertension (Primary Dx); Type 2 diabetes mellitus with hyperglycemia, without long-term current use of insulin; Hypogonadism in male; LLQ abdominal pain; History of kidney stones 10/26/2024 Travel 10/14/2024 Telephone [facility] [address] [place] [address] Isai Su MD Jardiance PA 10/05/2024 9:45 AM EDT Office Visit [facility] [address] [place] [address] Isai Su MD Essential hypertension (Primary Dx); Polycythemia; Hypogonadism male; Type 2 diabetes mellitus with hyperglycemia, without long-term current use of insulin; Mixed hyperlipidemia; Prostate cancer screening; Other insomnia 10/05/2024 Results Follow-Up [facility] [address] [place] [address] Isai Su MD 10/05/2024 Travel 10/04/2024 Telephone [facility] [address] [place] [address] Isai Su MD Advice Only from Last [...] [facility] [address] [place] [address] Isai Su MD [address] [place] [address] Health Maintenance Due Date Last Done [...] Ratio Urine (10/05/2024 10:46 AM EDT) Pathologist [facility] POC ALBUMIN, URINE 150 mg/L Comment:High abnormal POC CREATININE, URINE 100 mg/dL POC Urine Albumin Creatinine Ratio >300 <30 mg/g Lot Number [id number] Expiration Date 06/07/2025 Urine 10/05/2024 10:4 6 AM EDT us Isai Su MD POINT OF CARE TEST ORDERABLES F inal Result * PSA Screen (10/05/2024 10:27 AM EDT) [facility] PSA 1.010 0.000 - 4.000 ng/mL [facility] Comment: Testing Method: [employer] Electrochemiluminescence Immunoassay(ECLIA) Values obtained with different assay methods or kits cannot be used interchangeably. Blood 10/05/2024 10:2 7 AM EDT 10/05/2024 Narrative [facility] ([facility]) - 10/06/2024 8:11 AM EDT Performed at: [address] [place] [id number] Associate Professor Of Art: Sarkis Clayton MD, Phone: [phone] Patient Fasting: Y us Isai Su MD LAB BLOOD ORDERABLES Final Resu lt [facility] (AMBULATORY) [address] [place] [address], [place] [phone] [facility] [address] [place] [address], [place] [phone] * (ABNORMAL) Lipid Panel With / Chol / HDL Ratio (10/05/2024 10:27 AM EDT) [facility] Total Cholesterol 159 0 - 200 mg/dL [...] - 10/06/2024 8:11 AM EDT Performed at: [address] [place] [id number] Associate Professor Of Art: Sarkis Clayton MD, Phone: [phone] Patient Fasting: Y us Isai Su MD LAB BLOOD ORDERABLES Final Resu lt [facility] [place] ([facility]UL[facility]) [address] [place] [address], [facility] [address] [place] [address], * (ABNORMAL) CBC & Differential (10/05/2024 10:27 AM EDT) [facility] WBC 9.22 3.40 - 10.80 10*3/mm3 [facility] [...] - 10/06/2024 8:11 AM EDT Performed at: [address] [place] [address] [id number] Associate Professor Of Art: Sarkis Clayton MD, Phone: [phone] Patient Fasting: Y Isai Su MD LAB BLOOD ORDERABLES Final Resu lt Performing Organization Address City/[facility]/ZIP Co de Phone Number [facility] (AMBULATORY) [address] [place] [address], [facility] [address] [place] [address], * (ABNORMAL) Testosterone (10/05/2024 10:27 AM EDT) Testosterone, Total >1500(H) 264 - 916 ng/dL [facility] Comment: Adult male reference interval is based on a population of healthy nonobese males (BMI <30) between 19 and 39 years old. mone Ferrell.al. JCEM 2017,102;8819-1241. PMID: [id number]. Blood 10/05/2024 10:2 7 AM EDT 10/05/2024 Narrative [facility] (AMBULATORY) - 10/06/2024 8:11 AM EDT Performed at: [address] [facility] [id number] Associate Professor Of Art: Zach Orona PhD, Phone: [phone] Patient Fasting: Y Isai Su MD LAB BLOOD ORDERABLES Final Resu lt Performing Organization Address City/[facility] Co de Phone Number [facility] [address] [place] [address], [facility] [address] [id number], * (ABNORMAL) Hemoglobin A1c (10/05/2024 10:27 AM EDT) Hemoglobin A1C 8.10(H) 4.80 - 5.60 % [facility] Comment: Hemoglobin A1C Ranges: Increased Risk for Diabetes 5.7% to 6.4% Diabetes >= 6.5% Diabetic Goal < 7.0% Blood 10/05/2024 10:2 7 AM EDT 10/05/2024 Narrative [facility] ([facility]) - 10/06/2024 8:11 AM EDT Performed at: [address] [place] [id number] Associate Professor Of Art: Sarkis Clayton MD, Phone: [phone] Patient Fasting: Y us Isai Su MD LAB BLOOD ORDERABLES Final Resu lt [facility] (AMBULATORY) [address] [place] [address], [facility] [address] [place] [address], * (ABNORMAL) Comprehensive Metabolic Panel (10/05/2024 10:27 AM EDT) Pathologist [facility] Glucose 136(H) 65 - 99 mg/dL [facility] [...] - 10/06/2024 8:11 AM EDT Performed at: [address] [place] [address] [id number] Associate Professor Of Art: Sarkis Clayton MD, Phone: [phone] Patient Fasting: Y Isai Su MD LAB BLOOD ORDERABLES Final Resu lt [facility] (AMBUL[facility]ORY) [address] [place] [address], [facility] [address] [place] [address], [place] [phone] * SCANNED - COLONOSCOPY (05/14/2022) Tre Silva MD CHART REVIEW TABS Final Result * (ABNORMAL) POC Occult Blood Stool (04/28/2022 12:43 AM EST) Fecal Occult Blood Positive(A) Negative [facility] Lot Number [id number] [facility] Expiration Date 01/01 [facility] DEVELOPER LOT NUMBER [id number] [facility] DEVELOPER EXPIRATION DATE 08/02 [facility] Positive Control Positive Positive [facility] Negative Control Negative Negative [facility] Stool Specimen from rectum / Unknown 04/28/2022 12:43 AM EST Chito VIVEROS POINT OF CARE TEST ORDERABLES F inal Result [facility]
[address] [id number], * Hepatitis panel, acute (07/03/2015 8:43 AM [...] with a HCV Nucleic Acid Amplification test ([id number]). 07/03/2015 8:43 AM EDT 07/03/2015 3:43 PM EDT Isai Su MD LAB BLOOD ORDERABLES Edited Res ult - Final [facility]
[address] [place] [address], from Last 3 Months or Most Recently Relevant to Health Maintenance Insurance PPO Care Teams Brickmason Contractor Relationship Specialty Start Date End Date Isai Su MD [address] [place] [address] PCP - General 10/20/14
--- NOTE | 2024-12-17 10:45 | MR_ITS ---
FINAL REPORT TECHNIQUE: Multi planar MR imaging was performed through the left foot. CLINICAL HISTORY: left foot pain. POSTERIOR FOOT AND ANKLE PAIN.NO INJURY OR TRAUMA FINDINGS: Bone marrow signal intensity is normal without edema, fracture or pathologic marrow replacement. There is mild degenerative joint disease at the hindfoot. The Lisfranc joint is intact. The Lisfranc ligament is intact. The flexor and extensor tendons to the toes are intact. The Achilles tendon is intact. The plantar fascia is normal. There is nonspecific edema within Kager's fat pad. There is nonspecific edema at the ankle, slightly worse medially. This extends along the dorsum of the lateral hindfoot and midfoot. No loculated fluid collection or joint effusion. IMPRESSION: Nonspecific mild soft tissue edema. No acute osseous abnormality, tendon tear, or other acute abnormality otherwise. Authenticated and ERN
== END 2024-12-17 23:59 | disposition home or self-care (01) ==
LOC: RAD 10:22
PROVIDERS: PCP Family Medicine; Visit Provider Physician Assistant
DX: M79.89 Other specified soft tissue disorders (principal); S86.002A Unspecified injury of left Achilles tendon, initial encounter
CPT/HCPCS: 73718

== ENCOUNTER 2024-12-30 12:50 | Outpatient (RCR) | payer OTHER, SELFPAY ==
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
== END 2024-12-30 23:59 | disposition home or self-care (01) ==
LOC: PT 12:50
PROVIDERS: Visit Provider Physician Assistant
DX: S86.002A Unspecified injury of left Achilles tendon, initial encounter (principal)
CPT/HCPCS: 97162

== ENCOUNTER 2025-01-27 17:00 | Outpatient (RCR) | payer OTHER, SELFPAY | END 2025-01-27 23:59 | disposition home or self-care (01) | LOC: PT 17:00 | PROVIDERS: Visit Provider Physician Assistant | DX: S86.002D Unspecified injury of left Achilles tendon, subsequent encounter (principal); X58.XXXD Exposure to other specified factors, subsequent encounter | CPT/HCPCS: 97035; 97110; 97140; 97530 ==